=== PATIENT | female | born 1960 | race Caucasian/White ===

== ENCOUNTER 2022-02-12 14:03 | Emergency (ER) | payer OTHER ==
[2022-02-12] MEDS ORDERED: Dexamethasone 10 MG/ML VIAL ONE (14:53)
[2022-02-12] MEDS ORDERED: Morphine 10 MG/ML VIAL ONE (14:53)
[2022-02-12] MEDS ORDERED: Ketorolac Tromethamine 30 MG/ML VIAL ONE (15:39)
== END 2022-02-12 16:46 | disposition home or self-care (01) ==
LOC: BURERS 14:03
DX: M54.50 Low back pain, unspecified (principal); G89.29 Other chronic pain; I10 Essential (primary) hypertension; E11.40 Type 2 diabetes mellitus with diabetic neuropathy, unspecified; M32.9 Systemic lupus erythematosus, unspecified; Z86.73 Personal history of transient ischemic attack (TIA), and cerebral infarction without residual deficits; Z79.899 Other long term (current) drug therapy
CPT/HCPCS: 72220; 96372; J1100; J1885; J2270